=== PATIENT | female | born 1940 | race Caucasian/White ===

== ENCOUNTER 2018-09-25 07:14 | Outpatient (CLI) | payer OTHER, SELFPAY ==
[2018-09-25 08:53] LABS: ALT 26 U/L (12-78); AST 12 U/L (15-37); Albumin 3.7 g/dL (3.4-5.0); Alkaline Phosphatase 91 U/L (46-116); Anion Gap 9.6 mmol/L (3-11); BUN 17 mg/dL (7-18); Bilirubin, Total 0.6 mg/dL (0.2-1.0); CO2 27.4 mmol/L (21.0-32.0); Calcium 8.8 mg/dL (8.5-10.1); Chloride 99 mmol/L (98-107); Glucose 342 mg/dL (70-100); Potassium 4.2 mmol/L (3.5-5.1); Sodium 136 mmol/L (136-145); Total Protein 6.5 g/dL (6.4-8.2)
[2018-09-25 09:30] LABS: Calculated LDL 137 mg/dL; Cholesterol 229 mg/dL (50-200); HDL Cholesterol 82 mg/dL (40-60); Triglyceride 54 mg/dL (30-150); Vitamin B12 660 pg/mL (193-986)
== END 2018-09-25 07:34 ==
PROVIDERS: PCP Family Medicine; Visit Provider Family Medicine
DX: E78.5 Hyperlipidemia, unspecified (principal); R53.83 Other fatigue
CPT/HCPCS: 36415; 80053; 80061; 83721; 82607

== ENCOUNTER 2018-10-25 01:30 | Outpatient (CLI) | payer OTHER, SELFPAY ==
[2018-10-25 10:41] LABS: Glucose 282 mg/dL (70-100)
[2018-10-26 05:25] LABS: Hemoglobin A1C 13.1 % (4.5-6.2)
== END 2018-10-25 01:50 ==
PROVIDERS: PCP Family Medicine; Visit Provider Family Medicine
DX: R73.9 Hyperglycemia, unspecified (principal)
CPT/HCPCS: 36415; 82947; 83036

== ENCOUNTER 2018-10-29 10:41 | Outpatient (CLI) | payer OTHER, SELFPAY ==
[2018-10-29 13:00] LABS: Abs Immature Grans 0.01 k/cumm (0.0-0.09); Absolute Basophil Count 0.01 k/cumm (0.0-0.2); Absolute Eosinophil Count 0.11 k/cumm (0.0-0.7); Absolute Lymphocyte Count 1.18 k/cumm (1.2-3.4); Basophils % 0.2; Eosinophils % 2.4; HCT 38.9 % (36.0-46.0); HGB 13.6 g/dL (12.0-15.5); Immature Grans % 0.2; Lymphocytes % 25.6; Mean Corpuscular Hemoglobin 30.7 pg (27.0-33.0); Mean Corpuscular Volume 87.8 fL (80-95); Mean Platelet Volume 10.8 fL (8.0-11.0); Monocytes % 6.5; Neutrophils % 65.1; Platelet Count 225 x1000/uL (130-400); RBC 4.43 m/cumm (4.00-5.20); RBC Distribution Width 13.5 % (11.7-14.6); White Blood Cell Count 4.61 k/cumm (4.4-10.8)
[2018-10-29 13:21] LABS: COMMENT (LAB VIEW ONLY) 7.56 mg/dL; Microalb ug/mg Crea 46.3 ug/mg Cr
[2018-10-29 13:33] LABS: Ferritin 75 ng/mL (8-388); TSH 1.46 uIU/mL (0.36-3.74)
[2018-10-30 09:52] LABS: Transferrin 233 mg/dL (201-352)
== END 2018-10-29 11:01 ==
PROVIDERS: PCP Family Medicine; Visit Provider Family Medicine
DX: E11.9 Type 2 diabetes mellitus without complications (principal); R53.83 Other fatigue
CPT/HCPCS: 36415; 82043; 82570; 82728; 84443; 84466; 85025

== ENCOUNTER 2018-11-02 00:47 | Outpatient (CLI) | payer OTHER, SELFPAY ==
--- NOTE | 2018-11-02 07:38 | DI.US_ITS ---
SYMPTOM/DIAGNOSIS: PALPABLE LIVER ON EXAM, NEW ONSET DIABETES R16.0 ABDOMINAL ULTRASOUND: 11/02 The visualized liver parenchyma is normal in appearance. There is no evidence of cholelithiasis. The common bile duct is of normal diameter. The pancreas and spleen appear intact. No renal abnormality is seen. The abdominal aorta is of normal diameter. Normal appearance of IVC. CONCLUSION: Normal abdominal ultrasound.
== END 2018-11-02 01:07 ==
PROVIDERS: PCP Family Medicine; Visit Provider Family Medicine
DX: R16.0 Hepatomegaly, not elsewhere classified (principal)
CPT/HCPCS: 76700

== ENCOUNTER 2019-01-18 02:07 | Outpatient (CLI) | payer OTHER, SELFPAY ==
[2019-01-18 11:28] LABS: Hemoglobin A1C 7.2 % (4.5-6.2)
[2019-01-18 11:31] LABS: COMMENT (LAB VIEW ONLY) 10.88 mg/dL; Microalb ug/mg Crea 20.2 ug/mg Cr
== END 2019-01-18 02:27 ==
PROVIDERS: PCP Family Medicine; Visit Provider Family Medicine
DX: E11.9 Type 2 diabetes mellitus without complications (principal)
CPT/HCPCS: 36415; 82043; 82570; 83036

== ENCOUNTER 2019-04-20 01:22 | Outpatient (CLI) | payer OTHER, SELFPAY ==
[2019-04-20 14:00] LABS: Hemoglobin A1C 6.7 % (3.8-5.6)
== END 2019-04-20 01:42 ==
PROVIDERS: PCP Family Medicine; Visit Provider Family Medicine
DX: E11.9 Type 2 diabetes mellitus without complications (principal)
CPT/HCPCS: 36415; 83036

== ENCOUNTER 2019-09-28 03:48 | Outpatient (CLI) | payer OTHER, SELFPAY ==
[2019-09-28 12:57] LABS: Anion Gap 6.5 mmol/L (3-11); BUN 16 mg/dL (7-18); CO2 28.5 mmol/L (21.0-32.0); CREATININE 0.76 mg/dL (0.55-1.02); Calcium 9.2 mg/dL (8.5-10.1); Chloride 101 mmol/L (98-107); Glucose 103 mg/dL (74-106); Potassium 4.1 mmol/L (3.5-5.1); Sodium 136 mmol/L (136-145)
[2019-09-28 13:02] LABS: C-Reactive Protein < 0.05 mg/dL (0.0-0.3)
[2019-09-28 13:04] LABS: Hemoglobin A1C 6.3 % (3.8-5.6)
[2019-09-28 13:43] LABS: Calculated LDL 136 mg/dL (<100); Cholesterol 256 mg/dL (<200); HDL Cholesterol 103 mg/dL (40-60); Triglyceride 88 mg/dL (<150); Vitamin B12 1164 pg/mL (193-986)
== END 2019-09-28 04:08 ==
PROVIDERS: PCP Family Medicine; Visit Provider Family Medicine
DX: E11.9 Type 2 diabetes mellitus without complications (principal); E53.8 Deficiency of other specified B group vitamins; M25.50 Pain in unspecified joint
CPT/HCPCS: 36415; 80048; 80061; 82607; 83036; 86140

== ENCOUNTER 2019-10-27 03:11 | Outpatient (CLI) | payer OTHER, SELFPAY ==
--- NOTE | 2019-10-27 09:00 | DI.DEXA_ITS ---
EXAM: XR DEXA BONE DENSITY W/WO DENIA CLINICAL HISTORY: screeening for osteoporosis,OSTEOPENIA, M85.80 TECHNIQUE: COMPARISON: No exams were available for comparison FINDINGS: DEXA scan was performed according to the usual protocol. Findings for left hip scanning are T-score -1.9 with left femoral neck T-score -0.9. Prior study of August 2015 showed left hip T-score -1.5. Findings for lumbar spine scanning are T-score -1.8. Prior study of 2015 showed lumbar T-score -1.6. Right forearm scanning shows T-score -2.1. IMPRESSION: Findings consistent with osteopenia according to the WHO criteria. The lateral vertebral scanogram s hows no evidence of a vertebral compression fracture.
== END 2019-10-27 03:31 ==
PROVIDERS: PCP Family Medicine; Visit Provider Family Medicine
DX: M85.89 Other specified disorders of bone density and structure, multiple sites (principal)
CPT/HCPCS: 77080

== ENCOUNTER 2020-03-10 02:43 | Outpatient (CLI) | payer OTHER, SELFPAY ==
[2020-03-10 10:52] LABS: Anion Gap 6.1 mmol/L (3-11); BUN 12 mg/dL (7-18); CO2 29.9 mmol/L (21.0-32.0); Calcium 8.6 mg/dL (8.5-10.1); Calculated LDL 144 mg/dL (<100); Chloride 104 mmol/L (98-107); Cholesterol 267 mg/dL (<200); Glucose 131 mg/dL (74-106); HDL Cholesterol 116 mg/dL (40-60); Potassium 3.9 mmol/L (3.5-5.1); Sodium 140 mmol/L (136-145); Triglyceride 38 mg/dL (<150)
== END 2020-03-10 03:03 ==
PROVIDERS: Emergency Medicine; PCP Family Medicine; Visit Provider Family Medicine
DX: E11.9 Type 2 diabetes mellitus without complications (principal); I10 Essential (primary) hypertension
CPT/HCPCS: 36415; 80048; 80061; 83036

== ENCOUNTER 2020-03-20 15:09 | Emergency (ER) | payer OTHER, SELFPAY ==
--- NOTE | 2020-03-20 15:14 | ED.GENADUL_ITS ---
Discharge Plan Disposition Patient Disposition: HOME Condition: Good Discharge Details Clinical Impression: Effusion of knee, Acute knee pain, Quadricep tightness Primary Care Provider: Maddie Cordero ED Provider: Freya Duque Home Meds and New Rx's Prescriptions: Continued cholecalciferol (vitamin D3) 1,000 unit/drop drops See Rx Instructions .ROUTE .COMPLEX RF: 0 Bone Bulider Active 2 cap PO BID RF: 0 Discharge Instructions Instructions: Knee Pain (ED) Additional Instructions: Encourage hydration. Encourage gentle stretching and rolling of your muscles as discussed. Tylenol and/or Ibuprofen as needed for discomfort. Brace to help with discomfort. Referral to physical therapy is attached. You may also try your pilates or vision care associate as well. If not improving in 2 weeks please follow up with primary care. If you develop fevers/chills, increased pain, sensory changes or other new/worsening symptoms please seek care urgently once again. Referrals: Maddie Cordero MD [Primary Care Provider] - Medical Decision Making The patient is a pleasant 79-year-old female presenting today with chief complaint of left knee pain. She reports that she was hiking yesterday when she slipped and fell falling on her left knee. States she had some other areas that were achy in the upper extremities but this pain subsided quickly. Denies striking her head, no loss of conscious. Denies any neck or back pain. Denies any chest pain or shortness of breath. He is able to get up and continue her headache. Was concerned that she had persistent left knee pain. There is a small abrasion in the inferior lateral aspect of the left patella. 50 throu ghout the course of the day today she has been feeling tight in the posterior aspect of her leg, particularly at the posterior thigh. Denies any numbness or tingling. No pain in the hip foot. On exam, patient is resting comfortably. She does have a small abrasion but no deeper laceration. She has a small joint effusion. Full range of motion. Ligamentously intact with varus valgus stress testing as well as Gail exam. She able to straight leg raise. She has no palpable deformity to the hamstrings and has good flexion against resistance. 2+ distal pulses, sensation is intact. Calf is soft nontender after, Achilles intact. Patient seems quite reassured with this exam. She was quite concerned for potential transfer and rupture based on this intermittent tightness that she is been experiencing. However, I see no ecchymosis or evidence to suggest this. She has continued to have some discomfort over the patella, will obtain x-rays for further evaluation. FINDINGS: Bones/joints: Large knee joint effusion. Internal derangement is not excluded. Consider MRI if clinically relevant. Chondrocalcinosis of the menisci which could be seen I will in origin or related to CPPD arthropathy. No definite fracture. Soft tissues: Normal. Other findings: Wispy calcifications posterior to the knee joint could be synovial in origin. Correlate with MRI. IMPRESSION: Large knee joint effusion. Internal derangement is not excluded. Consider MRI if clinically relevant. Chondrocalcinosis of the menisci which could be seen I will in origin or related to CPPD arthropathy. Wispy calcifications posterior to the knee joint could be synovial in origin. Correlate with MRI. No definite fracture Discussed findings with the patient. Advised that her discomfort is primarily be due to hamstring strain. She does have contusion to the patella as well as a small joint effusion. Not see any evidence at this time to suggest ligamentous injury, knee dislocation. She and I did discuss treatment options. She would prefer to be will do this at home with Pilates and vision care associate. I will refer to physical therapy in the event that these are not successful. Encouraged him gentle stretching. She does try to hike or walk daily, we will fit with a knee brace to have added support but have encouraged her to go slow with this. I did encourage rest, ice, elevation. Tylenol and ibuprofen as needed for discomfort. Return precautions were discussed. She will follow up with primary care in 2 weeks for reevaluation. All the questions and concerns were addressed and she is in agreement this plan. HPI General Mode of arrival: ambulatory (walking with cane) . Date/Time Provider Initiated Documentation: 03/20/20 15:14 . Limitations to Documentation: no limitations . Information obtained by: patient and RN notes reviewed . History of Present Illness 79 year old F presents to the emergency department with the chief complaint of left knee pain, described as mild, Quality is described as aching (anteriorly over patella) and other (experiences tightness posterior thigh with activity), and is localized to the left and lower extremity. Patient extremity. Patient started experiencing this day(s) (1) and it has been intermittent. Immobilization improves symptom(s), Movement worsens symptoms . Patient notes no other symptoms.. Patient did receive the following treatments prior to arrival, none Related Data Home Medications Medication Instructions Recorded Confirmed cholecalciferol (vitamin D3) See Rx Instructions .ROUTE 09/14/18 03/20/20 .COMPLEX ml Bone Bulider Active 2 cap PO BID 09/22/19 03/20/20 Allergies Allergy/AdvReac Type Severity Reaction Status Date / Time nickel Allergy hives Unverified 03/20/20 15:23 Review of Systems Constitutional Constitutional: Reports as per HPI, Denies chills, Denies fever(s), Denies headache(s) and Denies weakness ENT Ears, Nose, Mouth, and Throat: Denies headache(s) Cardiovascular Cardiovascular: Reports as per HPI Respiratory Respiratory: Reports as per HPI and Denies cough Musculoskeletal Musculoskeletal: Reports as per HPI and Denies tingling Integumentary/Breasts Skin/Breast: Reports as per HPI, Denies rash and Denies wounds Neurologic Neurologic: Reports as per HPI, Denies headache(s), Denies tingling, Denies paresthesias and Denies weakness [facility] Medical History (Updated 03/20/20 @ 16:58 by JACOB Davenport) 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[facility]; 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; 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[facility]; 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; RIGHT UPPER CHEST Carpal tunnel syndrome Diabetes mellitus type 2, controlled Hyperlipidemia Osteopenia Surgical History DERMATITIS [place] 01/2013 Skin Cancer Removal 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 Family History (Updated 09/30/19 @ 10:31 by Mary Deluna) Mother , 85 Essential hypertension Atherosclerosis Heart disease Hyperlipidemia Father , 75 Personal history of malignant neoplasm kidney Cancer of kidney Sister Diabetes Hyperlipidemia Brother Stroke Grandfather Personal history of malignant neoplasm bone marrow Grandfather Stroke Grandmother Personal history of malignant neoplasm ESOPHAGEAL Social History Smoking/Tobacco Use Status: Never Smoking risk assessment performed?: Yes Alcohol Intake: current Alcohol Intake frequency: 0-2 drinks per day Alcohol type: wine Drug use: Never Substance use type: does not use Do you feel safe at home: Yes Do you feel safe in your relationship?: Yes Exam Const General: cooperative, healthy appearing, comfortable, no acute distress, well developed and well groomed Nutritional Appearance: average body habitus and well nourished Orientation: alert and awake Resp Effort & Inspection: normal respiratory effort, able to speak in complete sentences and no respiratory distress Cardio Rate: regular rate Rhythm: regular rhythm Skin Trauma: abrasion (inferior lateral patella) Neuro General: patient alert and patient awake Cognition: normal cognition Speech: speech normal Gait: normal gait Motor: muscle tone normal throughout Sensory Exam: no sensory deficits noted Extrem Knee images: 1. area of abrasion. Small joint effusion. Psych Appearance: grossly normal and well kempt Mental Status: mental status grossly normal Speech and Movement: speech and movement normal
[2020-03-20 15:19] VITALS: BP 172/84; PULSE 90; RESP 16; TEMP 37; O2SAT 99
--- NOTE | 2020-03-20 15:30 | DI.RAD_ITS ---
EXAM: XR KNEE LT 4V AP,LAT,[place],PAT CLINICAL HISTORY: knee pain, trauma. TECHNIQUE: 2D digital imaging was performed. COMPARISON: No exams were available for comparison FINDINGS: BONES: No acute fracture is present. No bony destructive lesion is seen. JOINTS: The knee is normally aligned. A large joint effusion is seen. Chondrocalcinosis of the menisci is noted which could be secondary to CPPD. SOFT TISSUE: Calcifications posteriorly which could lie in a Torres's cyst. IMPRESSION: Joint effusion. No evidence of fracture DATA REPOSITORY: RADIATION DOSE DELIVERED:
--- NOTE | 2020-03-20 16:40 | DI.VRAD_ITS ---
PROCEDURE INFORMATION: Exam: XR Left Knee Exam date and time: 03/20/2020 4:34 PM Age: 79 years old Clinical indication: Injury or trauma; Fall; Blunt trauma; Left; Patient HX: Knee pain, trauma TECHNIQUE: Imaging protocol: XR Left knee. Views: 4 or more views. COMPARISON: No relevant prior studies available. FINDINGS: Bones/joints: Large knee joint effusion. Internal derangement is not excluded. Consider MRI if clinically relevant. Chondrocalcinosis of the menisci which could be seen I will in origin or related to CPPD arthropathy. No definite fracture. Soft tissues: Normal. Other findings: Wispy calcifications posterior to the knee joint could be synovial in origin. Correlate with MRI. IMPRESSION: Large knee joint effusion. Internal derangement is not excluded. Consider MRI if clinically relevant. Chondrocalcinosis of the menisci which could be seen I will in origin or related to CPPD arthropathy. Wispy calcifications posterior to the knee joint could be synovial in origin. Correlate with MRI. No definite fracture Dictated and Authenticated by: Lopez Landin MD. Ordering:HUNG Vines MD
== END 2020-03-20 17:25 | disposition home or self-care (01) ==
PROVIDERS: Emergency Provider Physician Assistant; PCP Family Medicine
DX: M25.462 Effusion, left knee (principal); S80.212A Abrasion, left knee, initial encounter; S76.312A Strain of muscle, fascia and tendon of the posterior muscle group at thigh level, left thigh, initial encounter; W18.39XA Other fall on same level, initial encounter; Y93.01 Activity, walking, marching and hiking; E11.9 Type 2 diabetes mellitus without complications
CPT/HCPCS: 29505; 99283; 73564

== ENCOUNTER 2020-06-09 03:27 | Outpatient (CLI) | payer MEDICARE, SELFPAY ==
[2020-06-09 14:32] LABS: Calculated LDL 107 mg/dL (<100); Cholesterol 227 mg/dL (<200); HDL Cholesterol 113 mg/dL (40-60); Triglyceride 39 mg/dL (<150)
[2020-06-09 14:47] LABS: Anion Gap 8.5 mmol/L (3-11); BUN 12 mg/dL (7-18); CO2 28.5 mmol/L (21.0-32.0); CREATININE 0.7 mg/dL (0.55-1.02); Calcium 8.7 mg/dL (8.5-10.1); Chloride 98 mmol/L (98-107); Glucose 142 mg/dL (74-106); Potassium 4.1 mmol/L (3.5-5.1); Sodium 135 mmol/L (136-145)
== END 2020-06-09 03:28 | disposition home or self-care (01) ==
LOC: LBO 03:27
PROVIDERS: PCP Family Medicine; Visit Provider Family Medicine
DX: E11.9 Type 2 diabetes mellitus without complications (principal)
CPT/HCPCS: 36415; 80048; 80061; 83036

== ENCOUNTER 2020-09-22 02:20 | Outpatient (CLI) | payer MEDICARE, SELFPAY ==
[2020-09-22 10:46] LABS: Hemoglobin A1C 7.2 % (<5.7)
[2020-09-22 11:49] LABS: Anion Gap 9.1 mmol/L (3-11); BUN 11 mg/dL (7-18); CO2 28.9 mmol/L (21.0-32.0); CREATININE 0.7 mg/dL (0.55-1.02); Calcium 8.6 mg/dL (8.5-10.1); Calculated LDL 128 mg/dL (<100); Chloride 101 mmol/L (98-107); Cholesterol 238 mg/dL (<200); Glucose 149 mg/dL (74-106); HDL Cholesterol 102 mg/dL (40-60); Potassium 3.9 mmol/L (3.5-5.1); Sodium 139 mmol/L (136-145); Triglyceride 41 mg/dL (<150)
[2020-09-22 15:14] LABS: COMMENT (LAB VIEW ONLY) 32.42 mg/dL; Microalb ug/mg Crea 7.1 ug/mg Cr
== END 2020-09-22 02:21 | disposition home or self-care (01) ==
LOC: LBO 02:21
PROVIDERS: PCP Family Medicine; Visit Provider Family Medicine
DX: E11.9 Type 2 diabetes mellitus without complications (principal)
CPT/HCPCS: 36415; 80048; 80061; 82043; 82570; 83036

== ENCOUNTER 2021-03-22 03:01 | Outpatient (CLI) | payer MEDICARE, SELFPAY ==
[2021-03-22 11:45] LABS: Anion Gap 4.8 mmol/L (3-11); BUN 14 mg/dL (7-18); CO2 32.2 mmol/L (21.0-32.0); CREATININE 0.7 mg/dL (0.55-1.02); Calcium 8.9 mg/dL (8.5-10.1); Chloride 100 mmol/L (98-107); Glucose 143 mg/dL (74-106); Potassium 3.7 mmol/L (3.5-5.1); Sodium 137 mmol/L (136-145)
== END 2021-03-22 03:02 | disposition home or self-care (01) ==
LOC: LBO 03:01
PROVIDERS: PCP Family Medicine; Visit Provider Family Medicine
DX: E11.9 Type 2 diabetes mellitus without complications (principal)
CPT/HCPCS: 36415; 80048; 83036

== ENCOUNTER 2021-09-28 01:32 | Outpatient (CLI) | payer MEDICARE, SELFPAY ==
[2021-09-28 13:14] LABS: COMMENT (LAB VIEW ONLY) 17.31 mg/dL
[2021-09-28 13:17] LABS: Hemoglobin A1C 7.6 % (<5.7)
[2021-09-28 13:26] LABS: Anion Gap 7.8 mmol/L (3-11); BUN 13 mg/dL (7-18); CO2 30.2 mmol/L (21.0-32.0); CREATININE 0.7 mg/dL (0.55-1.02); Calcium 8.4 mg/dL (8.5-10.1); Calculated LDL 146 mg/dL (<100); Chloride 99 mmol/L (98-107); Cholesterol 243 mg/dL (<200); Glucose 172 mg/dL (74-106); HDL Cholesterol 90 mg/dL (40-60); Potassium 3.8 mmol/L (3.5-5.1); Sodium 137 mmol/L (136-145); Triglyceride 37 mg/dL (<150)
== END 2021-09-28 01:33 | disposition home or self-care (01) ==
LOC: LOS 01:33
PROVIDERS: PCP Family Medicine; Visit Provider Family Medicine
DX: E11.9 Type 2 diabetes mellitus without complications (principal); E78.5 Hyperlipidemia, unspecified
CPT/HCPCS: 36415; 80048; 80061; 82043; 82570; 83036

== ENCOUNTER 2022-10-01 03:37 | Outpatient (CLI) | payer MEDICARE, SELFPAY ==
[2022-10-01 11:00] LABS: Hemoglobin A1C 7.1 % (<5.7)
[2022-10-01 11:24] LABS: Anion Gap 7.6 mmol/L (3-11); BUN 8 mg/dL (7-18); CO2 28.4 mmol/L (21.0-32.0); CREATININE 0.7 mg/dL (0.55-1.02); Calcium 8.8 mg/dL (8.5-10.1); Calculated LDL 130 mg/dL (<100); Chloride 99 mmol/L (98-107); Cholesterol 244 mg/dL (<200); Estimated GFR 87.37 (mL/min/1.73m2); Glucose 158 mg/dL (74-106); HDL Cholesterol 105 mg/dL (40-60); Potassium 3.6 mmol/L (3.5-5.1); Sodium 135 mmol/L (136-145); Triglyceride 46 mg/dL (<150)
[2022-10-01 11:30] LABS: COMMENT (LAB VIEW ONLY) 21.22 mg/dL; Microalb ug/mg Crea 15.6 ug/mg Cr
[2022-10-02 11:06] LABS: Lyme Ab w Rflx to Lyme Confirm Negative (Negative)
[2022-10-03 21:32] LABS: Anaplasma phagocytophilum Negative (Negative); B. miyamotoi PCR Negative (Negative); Babesia divergens/MO-1 Negative (Negative); Babesia duncani Negative (Negative); Babesia microti Negative (Negative); Ehrlichia chaffeensis Negative (Negative); Ehrlichia ewingii/canis Negative (Negative); Ehrlichia muris eauclairensis Negative (Negative)
== END 2022-10-01 03:38 | disposition home or self-care (01) ==
LOC: LBO 03:37
PROVIDERS: Nurse Practitioner Family; PCP Family Medicine; Visit Provider Family Medicine
DX: E11.9 Type 2 diabetes mellitus without complications (principal); T14.8XXA Other injury of unspecified body region, initial encounter; W57.XXXA Bitten or stung by nonvenomous insect and other nonvenomous arthropods, initial encounter
CPT/HCPCS: 36415; 80048; 80061; 87798; 82043; 82570; 83036; 86618

== ENCOUNTER 2023-07-09 04:20 | Outpatient (CLI) | payer MEDICARE, SELFPAY ==
[2023-07-09 08:36] LABS: Hemoglobin A1C 6.8 % (<5.7)
== END 2023-07-09 04:21 | disposition home or self-care (01) ==
LOC: LBO 04:20
PROVIDERS: PCP Family Medicine; Visit Provider Family Medicine
DX: E11.65 Type 2 diabetes mellitus with hyperglycemia (principal)
CPT/HCPCS: 36415; 83036

== ENCOUNTER 2023-10-10 01:28 | Outpatient (CLI) | payer MEDICARE, SELFPAY ==
[2023-10-10 11:30] LABS: COMMENT (LAB VIEW ONLY) 15.45 mg/dL; Microalb ug/mg Crea 28.5 ug/mg Cr
[2023-10-10 11:31] LABS: ALT 39 U/L (14-59); AST 27 U/L (15-37); Albumin 3.9 g/dL (3.4-5.0); Alkaline Phosphatase 80 U/L (46-116); Anion Gap 6.7 mmol/L (3-11); BUN 13 mg/dL (7-18); CO2 30.3 mmol/L (21.0-32.0); CREATININE 0.7 mg/dL (0.55-1.02); Calcium 9.1 mg/dL (8.5-10.1); Calculated LDL 132 mg/dL (<100); Chloride 99 mmol/L (98-107); Cholesterol 251 mg/dL (<200); Estimated GFR 86.83 (mL/min/1.73m2); Glucose 145 mg/dL (74-106); HDL Cholesterol 111 mg/dL (40-60); Potassium 3.9 mmol/L (3.5-5.1); Sodium 136 mmol/L (136-145); Total Protein 6.9 g/dL (6.4-8.2); Triglyceride 42 mg/dL (<150)
[2023-10-10 11:45] LABS: Hemoglobin A1C 6.6 % (<5.7)
== END 2023-10-10 01:29 | disposition home or self-care (01) ==
LOC: LBO 01:30
PROVIDERS: PCP Family Medicine; Visit Provider Family Medicine
DX: E11.9 Type 2 diabetes mellitus without complications (principal)
CPT/HCPCS: 36415; 80053; 80061; 82043; 82570; 83036

== ENCOUNTER 2024-04-13 02:33 | Outpatient (CLI) | payer MEDICARE, SELFPAY ==
[2024-04-13 14:49] LABS: Hemoglobin A1C 7.1 % (<5.7)
== END 2024-04-13 02:34 | disposition home or self-care (01) ==
LOC: LBO 02:33
PROVIDERS: PCP Family Medicine; Visit Provider Family Medicine
DX: E11.9 Type 2 diabetes mellitus without complications (principal)
CPT/HCPCS: 36415; 83036

== ENCOUNTER 2024-10-15 00:55 | Outpatient (CLI) | payer MEDICARE, SELFPAY ==
[2024-10-15 11:51] LABS: HCT 35.7 % (36.0-46.0); HGB 12.4 g/dL (11.2-15.7); MCH 32.0 pg (27.0-33.0); MCHC 34.7 % (32.0-36.0); MCV 92 fL (80-95); MPV 10.9 fL (8.0-11.0); Platelet Count 165 10^3/uL (130-400); RBC 3.87 10^6/uL (3.93-5.22); RDW 13.2 % (11.7-14.6); RDW-SD 44.0 fL; WBC 3.63 10^3/uL (4.4-10.8)
[2024-10-15 12:13] LABS: Hemoglobin A1C 7.9 % (<5.7)
[2024-10-15 12:40] LABS: COMMENT (LAB VIEW ONLY) 32.00 mg/dL; Microalb ug/mg Crea 12.8 ug/mg Cr
[2024-10-15 12:47] LABS: Anion Gap 8.2 mmol/L (3-11); BUN 13 mg/dL (7-18); CO2 28.8 mmol/L (21.0-32.0); Calcium 9.4 mg/dL (8.5-10.1); Calculated LDL 145 mg/dL (<100); Chloride 102 mmol/L (98-107); Cholesterol 246 mg/dL (<200); Estimated GFR 89.56 (mL/min/1.73m2); Glucose 177 mg/dL (74-106); HDL Cholesterol 91 mg/dL (>or=50); Potassium 3.7 mmol/L (3.5-5.1); Sodium 139 mmol/L (136-145); Triglyceride 53 mg/dL (<150)
== END 2024-10-15 00:56 | disposition home or self-care (01) ==
PROVIDERS: PCP Family Medicine; Visit Provider Family Medicine
DX: E78.5 Hyperlipidemia, unspecified (principal); E11.9 Type 2 diabetes mellitus without complications
CPT/HCPCS: 36415; 80048; 80061; 85027; 82043; 82570; 83036

== ENCOUNTER 2024-12-09 15:37 | Outpatient (CLI) | payer MEDICARE, SELFPAY ==
--- NOTE | 2024-12-09 15:30 | RT.EKG_ITS ---
APPROVED REPORT Exam: Resting ECG Reason for Exam: chest discomfort Patient Location: O HR:77 bpm ECG Measurements Heart Rate 77 AXIS NH 156 P 80 QRSd 88 QRS 25 QT 367 T 55 QTc 416 Conclusion Sinus rhythm...normal P axis, V-rate 50- 99 Anterior infarct, old...Q >40mS, abnormal ST-T, V2-V5 Baseline wander in lead(s) V4
== END 2024-12-09 15:38 | disposition home or self-care (01) ==
LOC: DI.CM 15:38
PROVIDERS: PCP Family Medicine; Visit Provider Nurse Practitioner Family
DX: R07.89 Other chest pain (principal)
CPT/HCPCS: 93010

== ENCOUNTER 2024-12-09 17:17 | Outpatient (REF) | payer MEDICARE, SELFPAY ==
[2024-12-09 20:23] LABS: Abs Immature Grans 0.03 10^3/uL (0.0-0.06); HCT 33.0 % (36.0-46.0); HGB 11.3 g/dL (11.2-15.7); Immature Grans % 0.4 %; MCH 31.9 pg (27.0-33.0); MCHC 34.2 % (32.0-36.0); MCV 93 fL (80-95); MPV 9.7 fL (8.0-11.0); Platelet Count 275 10^3/uL (130-400); RBC 3.54 10^6/uL (3.93-5.22); RDW 13.8 % (11.7-14.6); RDW-SD 46.1 fL; WBC 6.70 10^3/uL (4.4-10.8)
[2024-12-09 20:48] LABS: ALT 59 U/L (14-59); AST 37 U/L (15-37); Albumin 3.0 g/dL (3.4-5.0); Alkaline Phosphatase 91 U/L (46-116); Anion Gap 6.0 mmol/L (3-11); BUN 16 mg/dL (7-18); Bilirubin, Total 0.3 mg/dL (0.2-1.0); CO2 28.0 mmol/L (21.0-32.0); Calcium 8.5 mg/dL (8.5-10.1); Chloride 107 mmol/L (98-107); Estimated GFR 89.56 (mL/min/1.73m2); Glucose 122 mg/dL (74-106); NT-proBNP 306 pg/mL (<300); Potassium 3.7 mmol/L (3.5-5.1); Sodium 141 mmol/L (136-145); Total Protein 5.8 g/dL (6.4-8.2)
== END 2024-12-09 17:18 | disposition home or self-care (01) ==
LOC: LBN 17:17
PROVIDERS: PCP Family Medicine; Visit Provider Nurse Practitioner Family
DX: R07.9 Chest pain, unspecified (principal); R06.02 Shortness of breath
CPT/HCPCS: 80053; 83880; 85025

== ENCOUNTER 2025-01-13 03:40 | Outpatient (CLI) | payer MEDICARE, SELFPAY ==
--- NOTE | 2025-01-13 06:00 | DI.US_ITS ---
APPROVED REPORT Exam: Exercise Treadmill Patient Location: Out-Patient Room/Bed: Stress Nurse: Kait Mai RN Ordering Provider:SIDRA SANON, Contact Number: [phone] BMI: 19.39 Baseline Rhythm: Sinus Rhythm Comment: Occasional PVC's, occasional PVC's Indications: Chest pain Medical History Medical History: Bilateral edema of lower extremities, DMT2, HLD, chest pain, dizziness, elevated BP without HTN hx, carotid stenosis Cardiac Medications: Vitamin D3 Allergies: Jaci Cardiac Risk Factors: Family hx, HLD Previous Cardiac Procedures: None Pretest Chest Pain Characteristics: None Exercise History: Physically active Physical Disabilities: None Lung Sounds: Clear to auscultation Heart Sounds: Regular Stress Test Details Test: Exercise stress testing was performed using a Moiz protocol. Rest Stress HR Resting HR Supine: 75 bpm Max Heart Rate (APMHR): 138 bpm Resting HR Standin bpm Target HR (85% APMHR): 117 bpm Max HR Achieved: 156 bpm % of APMHR: 113 Recovery HR: 78 bpm HR response to stress: Accelerated HR response to stress BP Resting BP Supine: 136/68 mmHg Resting BP Standin/68 mmHg Max BP: 172/68 mmHg Recovery BP: 150/72 mmHg BP response to stress: Normal blood pressure response to stress. ECG Resting ECG: Sinus Rhythm Ectopy: Rare PVC's, occasional PAC's Stress ECG: Sinus Tachycardia ST Change: No significant ST segment changes noted Arrhythmia: Frequent PAC's, occasional PVC's, couplets Recovery ECG: Sinus Rhythm Recovery ST Change: No significant ST segment changes noted Recovery Arrhythmia: Frequent PAC's, frequents PVC's Clinical Reason for Termination: 100% HR Achieved Stress Symptoms: None Exercise duration: 03 min10 sec Highest Stage Reached: Stage 0: 1.7 mph at 0% grade. Exercise capacity: 4.82 METs Angina Score: None Rate Pressure Product: [id number] Stress ECG Conclusion 1. Resting electrocardiogram was normal 2. Patient exercised on the Moiz protocol completed workload of 4.7 METS 3. Normal hemodynamic response to exercise. The patient achieved 100% of maximal predicted heart rate for age 4. There was no electrocardiographic evidence of myocardial ischemia 5. Atrial and ventricular ectopy was noted 6. See stress echo report Stress Test Summary STAGE Time (mins) Speed (mph) Grade (%) HR BP SpO2 SYMPTOMS METS Supine 75 136/68 98 Standing 80 132/68 1 3 1.7 10 126 4.5 2 6 2.5 12 136 7 1 min recovery 100 172/68 97 3 min recovery 86 152/70 98 6 min recovery 78 150/72 Treadmill stopped r/t patient meeting 100% max HR. Denied all symptoms. Patient left ambulatory in no apparent distress. MPI Conclusion This is a stress echocardiogram Resting echo showed ejection fraction 60% with normal wall motion Postexercise echo showed improved ejection fraction to greater than or equal to 70% with augmented contractility of all segments There was no echocardiographic evidence of myocardial ischemia
== END 2025-01-13 04:00 ==
LOC: DI 03:40
PROVIDERS: PCP Family Medicine; Visit Provider Nurse Practitioner Family
DX: R07.9 Chest pain, unspecified (principal); I49.01 Ventricular fibrillation; I49.1 Atrial premature depolarization
CPT/HCPCS: 93306; 93350; 93017